=== PATIENT | female | born 1950 | race Caucasian/White ===

== ENCOUNTER 2016-07-14 13:12 | Emergency (ER) | payer MEDICARE, MEDICAID ==
[~2016-07-14] VITALS: Ht 160 cm; Wt 63.6 kg
[~2016-07-14 13:12] MED LIST: ASPI-973 PO; BUDE10.2 IH; CARV6.252 PO; CLOP75TA3 PO; HYDR5TAB2 PO; KLO1T PO; LINE600T7 PO; ONDA4TAB9 PO; OXYC5TAB72 PO; PREC VAGINAL; SACC250C PO; SULF1TAB35 PO; SYMINH INH
[2016-07-14 13:16] VITALS: BP 146/85; PULSE 88; RESP 16; O2SAT 95
--- NOTE | 2016-07-14 13:31 | ED.REPORT ---
HPI-General Illness Date of Service Jul 14, 2016 ED Provider: Dr. Reynoso 66 y/o female with a hx of "seizures", recent shingles, coronary artery disease s/p stenting, HTN, anxiety and cervical cancer s/p surgery, presents to the ED complaining of diffuse vague symptoms after tapering off of her clonazepam several days ago. Symptoms include worsening of her baseline chronic bilateral leg and back pain in addition to feeling more anxious and not sleeping well. Pt reports she has always had leg cramps but it has significantly worsened since Sunday. Pt also reports back pain, nausea, dizziness, difficulty standing up, generalized weakness, occasional vague chest pain with moving/twisting, intermittent SOB, subjective fever and bruising on legs bilaterally where she bumped her legs. She denies diarrhea or vomiting but states that she has been nauseated. Pt has been taking Klonopin for several years but started tapering down several months ago. She stopped taking Klonopin entirely last week. She is accompanied by her finishing inspector who wishes to speak to me individually stating that the patient has a long psychiatric history and has been more agitated/ anxious ever since being taken off of her clonazepam by her PCP. Nursing Notes Stated Complaint: DIZZY/HEADACHE/BOTH LEG PAIN Chief Complaint: General Complaint Nursing Notes Reviewed: Yes Allergies: Coded Allergies: Penicillins (Verified Allergy, Severe, ANAPHYLAXIS, 07/14/16) clopidogrel (Verified Allergy, Severe, 07/14/16) hydrocortisone (Verified Allergy, Severe, 07/14/16) meperidine (Verified Allergy, Severe, 07/14/16) chocolate flavor (Verified Allergy, Mild, 07/14/16) Contrast Media (Verified Allergy, Unknown, 07/14/16) Mqupjyg-Cce-Spa Reductase Inhibitor (Verified Allergy, Unknown, 07/14/16) Tricyclic Compounds (Verified Allergy, Unknown, 07/14/16) acetaminophen (Verified Allergy, Unknown, generalized rash, 07/14/16) per patient report, not witnessed carbamazepine (Verified Allergy, Unknown, 07/14/16) divalproex sodium (Verified Allergy, Unknown, 07/14/16) iodine (Verified Allergy, Unknown, 07/14/16) latex (Verified Allergy, Unknown, 07/14/16) peanut (Verified Allergy, Unknown, 07/14/16) Uncoded Allergies: GLUCOCORTICOIDS (Ingr Allergy) (Allergy, Severe, Y, 03/09/04) Opiate Agonists (Narcotics) (Allergy, Severe, 02/14/12) DEMEROL, denies allergy to Oxycodone, Morphine or Dilaudid ANTIPSYCHOTICS (Allergy, Mild, 01/19/09) SEROTONIN UPTAKE (Allergy, Mild, 03/09/04) Scheduled Aspirin (Aspirin) 81 Mg Tablet 81 MG PO DAILY Budesonide/Formoterol 160-4.5 mcg Inh (Symbicort 160-4.5 mcg Inh) 120 Puff Inhaler 2 PUFFS INH BID Budesonide/Formoterol 80-4.5 mcg Inh (Symbicort 80-4.5 mcg Inh) 120 Puff/10.2 Gm Inhaler 2 PUFF IH BID Carvedilol (Carvedilol) 6.25 Mg Tablet 6.25 MG PO MORNING Carvedilol (Carvedilol) 6.25 Mg Tablet 25 MG PO Evening Clonazepam (Clonazepam) 1 Mg Tablet 2 MG PO TID Clopidogrel Bisulfate (Plavix) 75 Mg Tablet 75 MG PO DAILY Estrogens Conjugated (Premarin) 1 Gm Vagcream 0.5 GM VAGINAL twice a week Hydrocortisone (Hydrocortisone) 5 Mg Tablet 20 MG PO BID Linezolid (Linezolid) 600 Mg Tablet 600 MG PO BID Saccharomyces Boulardii (Florastor) 250 Mg Capsule 250 MG PO BID Sulfamethoxazole/Trimeth 800-160 mg (Bactrim DS 800-160 mg) 1 Each Tablet 1 TABLET PO BID Scheduled PRN Ondansetron ODT (Zofran ODT) 4 Mg Tablet 4 MG PO Q4H PRN PRN For Nausea oxyCODONE (oxyCODONE) 5 Mg Tablet 5 MG PO TID PRN PRN For Pain General Time Seen by MD: 13:31 Chief Complaint Other (Bilateral leg cramps) Hx Obtained From: Patient Arrived By: Walk-in Sudden in Onset?: Yes Symptom Duration: Since onset Quality: Painful Radiation: : Does not radiate Severity: Current: Mild Severity: Maximum: Mild Recent Healthcare: No recent doctor visit Similar Sx Previous: No Past Medical History Past Medical History Notes: Reports administrative personal assistant is Dr. Travis in [place] ([phone]) Past Medical History 1. Coronary artery disease with stent placement. 2. Sarcoidosis of the lungs. O2 dependent 3. Old myocardial infarction in 2004. 4. Acid reflux. 5. Depression. 6. Bone spurs 6. Hypertension. 7. History of adrenal insufficiency secondary to [place]'s disease 8. Anxiety Reports: Cancer Past Surgical History Biopsy Reports: Hysterectomy Smoking History Former Smoker Social History Alcohol Use: "Social" Ambulatory Status Independent Review of Systems Difficulty standing up. Full Review of Systems Constitutional: Reports: Fever Respiratory: Reports: Shortness of breath Cardiovascular: Reports: Chest pain GI: Reports: Nausea, Denies: Vomiting Musculoskeletal: Reports: Back pain, Extremity pain Skin: Reports Bruising Neurologic: Reports: Dizziness, Weakness Psychiatric: Denies: Insomnia Complete sys rev & neg: except as marked. Physical Exam Vital Signs Vital Signs Date Time Temp Pulse Resp B/P Pulse Ox O2 Delivery O2 Flow Rate FiO2 07/14/16 13:16 36.6 88 16 146/85 95 Room Air Initial VS: Reviewed, Vital signs normal Head / Eyes: Atraumatic, Normocephalic, PERRL Respiratory: Breath sounds normal, Clear to auscultation, No respiratory distress Cardiovascular: Regular rate & rhythm, Heart sounds normal, Intact distal pulses Abdomen / GI: Soft, Non-tender, No guarding, No rebound, No distention Skin: Warm, Dry, No cyanosis Neurologic: Alert, Oriented, Nonfocal Psychiatric: Mood/affect normal, Behavior normal, Normal thought content General/Constitutional: Awake, Alert, Cooperative, Not toxic appearing ENT: Atraumatic Dry mucous membranes. Neck: Atraumatic, Full range of motion No mid-cervical tenderness. Upper Extremities Upper Extremity / MS: Atraumatic, Full range of motion Old well-healed horizontal scars on left and right forearm. Lower Extremity / Pelvis / MS: Atraumatic, Full range of motion Scattered superficial varicose veins to her bilateral lower extremeties. Neurologic: Oriented X3, Speech NL, No motor deficits, No sensory deficits No pronator drift. 5/5 strength in all 4 extremities Re-Eval/Medical Decision Med Decision/Clinical Course 66 y/o female with a hx of "seizures", recent shingles, coronary artery disease s/p stenting, HTN, anxiety and cervical cancer s/p surgery, presents to the ED complaining of diffuse vague symptoms after tapering off of her clonazepam several days ago. Symptoms include worsening of her baseline chronic bilateral leg and back pain in addition to feeling more anxious and not sleeping well. Pt reports she has always had leg cramps but it has significantly worsened since Sunday. Pt also reports back pain, nausea, dizziness, difficulty standing up, generalized weakness, occasional vague chest pain with moving/twisting, intermittent SOB, subjective fever and bruising on legs bilaterally where she bumped her legs. She denies diarrhea or vomiting but states that she has been nauseated. Pt has been taking Klonopin for several years but started tapering down several months ago. She stopped taking Klonopin entirely last week. She is accompanied by her finishing inspector who wishes to speak to me individually stating that the patient has a long psychiatric history and has been more agitated/ anxious ever since being taken off of her clonazepam by her PCP. Here in the emergency department the patient is hemodynamically stable and afebrile. She has not been experiencing any seizure events and her seizure history is unclear. Generally benzodiazepines are not used as a maintenance antiseizure medication. While I suspect that she is experiencing benzodiazepine withdrawal she is not experiencing any severe symptoms of tachycardia, tremors or seizures. Her neurologic examination is completely nonfocal. She has no fevers , chills, cough or urinary symptoms suggestive of acute bacterial infection. Skin examination reveals no abscesses or rash. She is without meningismus or neck stiffness suggestive of meningitis. She is without suicidal ideation or severe disorganization and I do not feel that she is immediate risk of harm to herself or others. He reported feeling somewhat nauseated and dehydrated and she was given 1 L of normal saline in addition to Zofran for nausea. She had symptom improvement. She remained afebrile and hemodynamically stable. Her overall constellation of symptoms is highly suggestive of benzodiazepine withdrawal and I do not feel that imaging or laboratory studies will be of much diagnostic benefit. She is advised to follow-up with her primary care doctor regarding whether or not they would like to restart her on benzodiazepines or prolong her taper. At this time I do not feel that treatment with benzodiazepines is emergently indicated. Prior to discharge follow-up and return precautions were reviewed in detail with the patient who verbalized understanding and agreement with the plan. The patient was discharged in stable condition. Time of Eval: 13:40 Re-Evaluation/Progress Note: Informed the pt of diagnosis and plan to discharge. Pt understood and agreed witht the plan. F/U and RTER instructions given. All questions answered. Counseled Regarding: Diagnosis, Need for follow-up, When/why to return to ED Discharge & Departure Primary Impression: Benzodiazepine withdrawal Complication of substance-induced condition: uncomplicated Qualified Code: F13.230 - Sedative, hypnotic or anxiolytic dependence with withdrawal, uncomplicated Additional Impressions: Anxiety Insomnia Insomnia type: unspecified Qualified Code: G47.00 - Insomnia, unspecified Total body pain Disposition: Home Discharge Condition All VS Reviewed: Yes Condition: Stable Additional Instructions: Thank you for seeking care at the emergency room. It is difficult for us to make definitive diagnoses in the ED but we believe that you are experiencing benzodiazepine withdrawal. Our primary goal today in the ED was to evaluate you for any life-threatening conditions. Your evaluation was reassuring. You should follow-up with your primary doctor in the next week. If you feel that your taper has been done to quickly please discuss this with your regular doctor. You should return to the ED immediately if you develop worsening symptoms, seizures, tremors, suicidal thoughts, fevers, vomiting, cough, shortness of breath, chest pain, lightheadedness, weakness or any other concerning signs or symptoms. Thank you for letting us partake in your care today. Referrals: Zeus Gerardo MD (PCP) Scribe Attestation Portions of this note were transcribed by Ivelisse Yousif and Anita Harris . I, personally performed the history, physical exam and medical decision-making;I reviewed and confirmed the accuracy of the information in the transcribed note. Signed by Ivelisse Harris, Scribe. 07/14/16 1600. copies to: Zeus Gerardo MD, Beck O MD Jul 14, 2016 13:31 Ivelisse Yousif Jul 14, 2016 14:58 Anita Harris Jul 14, 2016 15:51
[2016-07-14] MEDS ORDERED: Ondansetron 2 mg/mL 2 mL Inj IVPUSH ONE (15:40)
[2016-07-14] MEDS ORDERED: 0.9% Sodium Chloride 1,000 ML IV ONE (15:40)
[2016-07-14 16:45] VITALS: BP 124/73; PULSE 76; RESP 18; O2SAT 99
[2016-07-14] MEDS ORDERED: ONDA4TAB9 PO (16:58)
== END 2016-07-14 17:01 | disposition home or self-care (01) ==
LOC: SED 13:12
DX: F13.230 Sedative, hypnotic or anxiolytic dependence with withdrawal, uncomplicated (principal); M79.604 Pain in right leg; M79.605 Pain in left leg; M54.9 Dorsalgia, unspecified; R07.9 Chest pain, unspecified; F41.9 Anxiety disorder, unspecified; G47.00 Insomnia, unspecified; I11.9 Hypertensive heart disease without heart failure; I25.10 Atherosclerotic heart disease of native coronary artery without angina pectoris; K21.9 Gastro-esophageal reflux disease without esophagitis; I25.2 Old myocardial infarction; Z91.14 Patient's other noncompliance with medication regimen; Z79.82 Long term (current) use of aspirin; Z87.891 Personal history of nicotine dependence; Z88.0 Allergy status to penicillin; Z88.5 Allergy status to narcotic agent; Z88.8 Allergy status to other drugs, medicaments and biological substances; Z91.010 Allergy to peanuts; Z91.040 Latex allergy status; Z91.041 Radiographic dye allergy status
CPT/HCPCS: 96361; 96374; 99284; J2405; J7030

== ENCOUNTER 2016-07-15 20:33 | Emergency (ER) | payer MEDICARE, MEDICAID ==
[~2016-07-15] VITALS: Ht 162.6 cm; Wt 63.6 kg
[2016-07-15 20:36] VITALS: BP 161/98; PULSE 87; RESP 16; O2SAT 98
--- NOTE | 2016-07-15 22:49 | ED.REPORT ---
HPI-General Illness Date of Service Jul 15, 2016 ED Provider: Carlton Hyde DO A 66 year old female with a history of hypertension, anxiety, Elier's disease and multiple other medical concerns presents to the ED complaining of a possible allergic reaction to Zofran. She was seen in the ED last night and prescribed Zofran, which she took the first dose of this evening. She began to feel her mouth and throat swell after this. The pt took two Benadryl at home but is still complaining of swelling. Nursing Notes Stated Complaint: POSSIBLE ALLERGIC REACTION Chief Complaint: Allergic Reaction Nursing Notes Reviewed: Yes Allergies: Coded Allergies: Penicillins (Verified Allergy, Severe, ANAPHYLAXIS, 07/15/16) clopidogrel (Verified Allergy, Severe, 07/15/16) hydrocortisone (Verified Allergy, Severe, 07/15/16) meperidine (Verified Allergy, Severe, 07/15/16) chocolate flavor (Verified Allergy, Mild, 07/15/16) Contrast Media (Verified Allergy, Unknown, 07/15/16) Vasldnh-Zif-Npb Reductase Inhibitor (Verified Allergy, Unknown, 07/15/16) Tricyclic Compounds (Verified Allergy, Unknown, 07/15/16) acetaminophen (Verified Allergy, Unknown, generalized rash, 07/15/16) per patient report, not witnessed carbamazepine (Verified Allergy, Unknown, 07/15/16) divalproex sodium (Verified Allergy, Unknown, 07/15/16) iodine (Verified Allergy, Unknown, 07/15/16) latex (Verified Allergy, Unknown, 07/15/16) peanut (Verified Allergy, Unknown, 07/15/16) Uncoded Allergies: GLUCOCORTICOIDS (Ingr Allergy) (Allergy, Severe, Y, 03/09/04) Opiate Agonists (Narcotics) (Allergy, Severe, 02/14/12) DEMEROL, denies allergy to Oxycodone, Morphine or Dilaudid ANTIPSYCHOTICS (Allergy, Mild, 01/19/09) SEROTONIN UPTAKE (Allergy, Mild, 03/09/04) Scheduled Aspirin (Aspirin) 81 Mg Tablet 81 MG PO DAILY Budesonide/Formoterol 160-4.5 mcg Inh (Symbicort 160-4.5 mcg Inh) 120 Puff Inhaler 2 PUFFS INH BID Budesonide/Formoterol 80-4.5 mcg Inh (Symbicort 80-4.5 mcg Inh) 120 Puff/10.2 Gm Inhaler 2 PUFF IH BID Carvedilol (Carvedilol) 6.25 Mg Tablet 6.25 MG PO MORNING Carvedilol (Carvedilol) 6.25 Mg Tablet 25 MG PO Evening Clonazepam (Clonazepam) 1 Mg Tablet 2 MG PO TID Clopidogrel Bisulfate (Plavix) 75 Mg Tablet 75 MG PO DAILY Estrogens Conjugated (Premarin) 1 Gm Vagcream 0.5 GM VAGINAL twice a week Hydrocortisone (Hydrocortisone) 5 Mg Tablet 20 MG PO BID Linezolid (Linezolid) 600 Mg Tablet 600 MG PO BID Saccharomyces Boulardii (Florastor) 250 Mg Capsule 250 MG PO BID Sulfamethoxazole/Trimeth 800-160 mg (Bactrim DS 800-160 mg) 1 Each Tablet 1 TABLET PO BID Scheduled PRN Ondansetron ODT (Zofran ODT) 4 Mg Tablet 4 MG PO Q4H PRN PRN For Nausea Ondansetron ODT (Zofran ODT) 4 Mg Tablet 4 MG PO Q4H PRN PRN For Nausea oxyCODONE (oxyCODONE) 5 Mg Tablet 5 MG PO TID PRN PRN For Pain General Time Seen by MD: 22:47 Chief Complaint Allergic reaction Hx Obtained From: Patient Arrived By: Walk-in Sudden in Onset?: Yes Onset Occurred: 1 - 4 hours ago Symptom Duration: Since onset Recent Healthcare: Recent doctor visit, Recent hospitalization Similar Sx Previous: Yes Past Medical History Past Medical History Notes: 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 Coronary artery disease with stent placement. 2. Sarcoidosis of the lungs. O2 dependent 3. Old myocardial infarction in 2004. 4. Acid reflux. 5. Depression. 6. Bone spurs 6. Hypertension. 7. History of adrenal insufficiency secondary to [place]'s disease 8. Anxiety Reports: Cancer Past Surgical History Biopsy Reports: Hysterectomy Smoking History Former Smoker Social History Alcohol Use: "Social" Ambulatory Status Independent Review of Systems swelling of the tongue and cheek Full Review of Systems Respiratory: Denies: Non-productive cough, Shortness of breath Cardiovascular: Denies: Chest pain GI: Denies: Abdominal pain Musculoskeletal: Denies: Back pain, Neck pain Skin: Denies Rash Complete sys rev & neg: except as marked. Physical Exam Vital Signs Vital Signs Date Time Temp Pulse Resp B/P Pulse Ox O2 Delivery O2 Flow Rate FiO2 07/16/16 02:02 71 20 145/94 96 Room Air 07/15/16 23:42 66 16 135/79 99 Nasal Cannula 2 07/15/16 20:36 36.3 87 16 161/98 98 Nasal Cannula 2 Initial VS: Reviewed General/Constitutional: Awake, Alert Head / Eyes: Atraumatic, Normocephalic, PERRL, EOMI ENT: Atraumatic, Airway patent, Mucous membranes moist angioedema of the tongue and cheek Neck: Atraumatic, Supple, Full range of motion Respiratory / Chest: Atraumatic, Breath sounds NL, Breath sounds = bilat, No respiratory distress Cardiovascular: Heart rate NL, Regular rhythm, Heart sounds NL Abdomen: Atraumatic, Soft, Non-tender Back: Atraumatic, Full range of motion Upper Extremities Upper Extremity / MS: Atraumatic, Full range of motion Lower Extremity / Pelvis / MS: Atraumatic, Full range of motion Skin: Atraumatic, Color NL, No rash, Warm, Dry Neurologic: Oriented X3, Speech NL, No motor deficits, No sensory deficits Psychiatric: Affect NL, Mood NL Interpretation & Diagnostics Lab Results Interpretation Result Diagram: 07/16/16 0050 07/16/16 0050 Test 07/16/16 00:50 White Blood Count 9.6th/mm3 (3.8-10.1) Red Blood Count 4.54mil/mm3 (3.90-5.20) Hemoglobin 13.7g/dL (12.0-15.6) Hematocrit 42.8% (35.0-46.0) Mean Corpuscular Volume 94.3fL (81-100) Mean Corpuscular Hemoglobin 30.2pg (27.0-35.0) Mean Corpuscular Hemoglobin Concent 32.0% (32.0-37.0) Red Cell Distribution Width 13.3% (12.3-15.4) Platelet Count 255bil/L (150-400) Neutrophils (%) (Auto) 62.6% (40-74) Lymphocytes (%) (Auto) 27.2% (14-46) Monocytes (%) (Auto) 7.8% (4-12) Eosinophils (%) (Auto) 1.7% (0-5) Basophils (%) (Auto) 0.5% (0-3) Hold Purple Top Tube Received (Received) Hold Blue Top Tube Received (Received) Sodium Level 140mEq/L (134-144) Potassium Level 4.4mEq/L (3.5-5.2) Chloride Level 99mEq/L (97-108) Carbon Dioxide Level 24mmol/L (18-29) Blood Urea Nitrogen 14mg/dL (8-27) Creatinine 0.75mg/dL (0.57-1.00) Estimat Glomerular Filtration Rate 111mL/min (>59) Glucose Level 104mg/dL (60-99) Calcium Level 9.2mg/dL (8.5-10.1) Troponin T 0.010ug/L (0.0-0.011) Hold Red Top Tube Received (Received) Hold [place] Top Tube Received (Received) Hold [place] Top Tube Received (Received) Pulse Oximetry Interpretation Pulse Oximetry Interpretation: 98% on nasal cannula Pulse Oximetry: Pulse Ox normal Re-Eval/Medical Decision Med Decision/Clinical Course The patient was observe for 5.5 hours. During this time her swelling resolved and her vital signs remained stable. She was asymptomatic and her labs were reassuring. The patient was discharged home with instructions to avoid Zofran in the future. Source of Hx: Old records Time of Eval: 01:23 Patient Status: Condition improved Re-Evaluation/Progress Note: Pt rechecked, whose condition has significantly improved. The diagnosis and plan for discharge are discussed. The pt understands and agrees with the plan. All questions are addressed at this time. Counseled Regarding: Diagnosis, Lab results, Need for follow-up, When/why to return to ED Discharge & Departure Primary Impression: Angioedema Encounter type: initial encounter Qualified Code: T78.3XXA - Angioneurotic edema, initial encounter Disposition: Home Discharge Condition All VS Reviewed: Yes Condition: Stable Patient Instructions: Anaphylaxis (DC) Additional Instructions: Use Benadryl as directed. Take your medications as directed. Your white blood count is normal and your body chemistry tests are reassuring. Call your primary care physician in the morning to arrange a follow up appointment next week. I recommend that you avoid Ondansetron in the future. Return to the emergency department if you develop any new or worsening symptoms. Referrals: Zeus Gerardo MD (PCP) Andrewibe Attestation Portions of this note were transcribed by Calvin Lua. I, Dr. Hyde personally performed the history, physical exam and medical decision-making; I reviewed and confirmed the accuracy of the information in the transcribed note. Signed by: Fermín Saunders, 07/16/16 and 0213. copies to: Zeus Gerardo MD, Todd P DO Jul 15, 2016 22:49 CALVIN LUA Jul 15, 2016 22:57
[2016-07-15] MEDS ORDERED: Hydrocortisone 50 mg/mL 2 mL Inj IVPUSH ONE (22:55)
[2016-07-15] MEDS ORDERED: Famotidine Inj 20 MG in IV Premix 1 EACH IV ONE (22:55)
[2016-07-15 23:42] VITALS: BP 135/79; PULSE 66; RESP 16; O2SAT 99
[2016-07-16 01:30] LABS: BASOPHILS % (AUTO) 0.5 % (0-3); EOSINOPHILS % (AUTO) 1.7 % (0-5); MONOCYTES % (AUTO) 7.8 % (4-12); Mean Corpuscular Hemoglobin 30.2 pg (27.0-35.0); Mean Corpuscular Volume 94.3 fL (81-100); NEUTROPHILS % (AUTO) 62.6 % (40-74); Platelet Count 255 bil/L (150-400)
[2016-07-16 02:02] VITALS: BP 145/94; PULSE 71; RESP 20; O2SAT 96
== END 2016-07-16 02:04 | disposition home or self-care (01) ==
LOC: SED 20:33
DX: T78.3XXA Angioneurotic edema, initial encounter (principal); Y93.89 Activity, other specified; Y92.89 Other specified places as the place of occurrence of the external cause; Y99.8 Other external cause status; E27.1 Primary adrenocortical insufficiency; I11.9 Hypertensive heart disease without heart failure; I25.10 Atherosclerotic heart disease of native coronary artery without angina pectoris; K21.9 Gastro-esophageal reflux disease without esophagitis; I25.2 Old myocardial infarction; Z87.891 Personal history of nicotine dependence; Z79.82 Long term (current) use of aspirin; Z88.0 Allergy status to penicillin; Z88.5 Allergy status to narcotic agent; Z88.8 Allergy status to other drugs, medicaments and biological substances; Z91.010 Allergy to peanuts; Z91.02 Food additives allergy status; Z91.040 Latex allergy status; Z91.041 Radiographic dye allergy status
CPT/HCPCS: 36415; 80048; 84484; 85025; 96374; 96375; 99284; J1720; J3490

== ENCOUNTER 2016-07-28 15:01 | Emergency (ER) | payer MEDICARE, MEDICAID ==
[~2016-07-28] VITALS: Ht 162.6 cm; Wt 63.6 kg
[2016-07-28 15:05] VITALS: BP 120/64; PULSE 97; RESP 10; O2SAT 100
--- NOTE | 2016-07-28 16:28 | ED.REPORT ---
HPI-Medication Refill Date of Service July 28, 2016 ED Provider: David Reynoso MD History of Present Illness: sent in by counselor, kierra zelaya sent her in. sees her 2 times a month. body feels weird, things crawling into skin. started 2 weeks ago. 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 5 hours a day 6 days a week is what help she has. Seen in [place]. coughing which is new since yesterday. has scardosis, gopal's. last took clonzapam 2 weeks ago. Nursing Notes Stated Complaint: MEDICATION WITHDRAWAL Chief Complaint: General Complaint Nursing Notes Reviewed: Yes Allergies: Coded Allergies: Penicillins (Verified Allergy, Severe, ANAPHYLAXIS, 07/15/16) clopidogrel (Verified Allergy, Severe, 07/15/16) hydrocortisone (Verified Allergy, Severe, 07/15/16) meperidine (Verified Allergy, Severe, 07/15/16) chocolate flavor (Verified Allergy, Mild, 07/15/16) Contrast Media (Verified Allergy, Unknown, 07/15/16) Glmspsq-Zvm-Kix Reductase Inhibitor (Verified Allergy, Unknown, 07/15/16) Tricyclic Compounds (Verified Allergy, Unknown, 07/15/16) acetaminophen (Verified Allergy, Unknown, generalized rash, 07/15/16) per patient report, not witnessed carbamazepine (Verified Allergy, Unknown, 07/15/16) divalproex sodium (Verified Allergy, Unknown, 07/15/16) iodine (Verified Allergy, Unknown, 07/15/16) latex (Verified Allergy, Unknown, 07/15/16) ondansetron (Verified Allergy, Unknown, angioedema, 07/28/16) peanut (Verified Allergy, Unknown, 07/15/16) Uncoded Allergies: GLUCOCORTICOIDS (Ingr Allergy) (Allergy, Severe, Y, 03/09/04) Opiate Agonists (Narcotics) (Allergy, Severe, 02/14/12) DEMEROL, denies allergy to Oxycodone, Morphine or Dilaudid ANTIPSYCHOTICS (Allergy, Mild, 01/19/09) SEROTONIN UPTAKE (Allergy, Mild, 03/09/04) Scheduled Aspirin (Aspirin) 81 Mg Tablet 81 MG PO DAILY Budesonide/Formoterol 160-4.5 mcg Inh (Symbicort 160-4.5 mcg Inh) 120 Puff Inhaler 2 PUFFS INH BID Budesonide/Formoterol 80-4.5 mcg Inh (Symbicort 80-4.5 mcg Inh) 120 Puff/10.2 Gm Inhaler 2 PUFF IH BID Carvedilol (Carvedilol) 6.25 Mg Tablet 6.25 MG PO MORNING Carvedilol (Carvedilol) 6.25 Mg Tablet 25 MG PO Evening Clonazepam (Clonazepam) 1 Mg Tablet 2 MG PO TID Clopidogrel Bisulfate (Plavix) 75 Mg Tablet 75 MG PO DAILY Estrogens Conjugated (Premarin) 1 Gm Vagcream 0.5 GM VAGINAL twice a week Hydrocortisone (Hydrocortisone) 5 Mg Tablet 20 MG PO BID Linezolid (Linezolid) 600 Mg Tablet 600 MG PO BID Saccharomyces Boulardii (Florastor) 250 Mg Capsule 250 MG PO BID Sulfamethoxazole/Trimeth 800-160 mg (Bactrim DS 800-160 mg) 1 Each Tablet 1 TABLET PO BID Scheduled PRN Ondansetron ODT (Zofran ODT) 4 Mg Tablet 4 MG PO Q4H PRN PRN For Nausea Ondansetron ODT (Zofran ODT) 4 Mg Tablet 4 MG PO Q4H PRN PRN For Nausea oxyCODONE (oxyCODONE) 5 Mg Tablet 5 MG PO TID PRN PRN For Pain General Time Seen by Provider: 16:27 Chief Complaint Other (feels things crawling in her skin) Hx Obtained From: Patient Onset Occurred: More than a week ago... (3 weeks) Symptom Duration: Since onset Past Medical History Past Medical History Notes: Reports hadoop admin is Dr. Travis in [place] ([phone]) Past Medical History 1. Coronary artery disease with stent placement. 2. Sarcoidosis of the lungs. O2 dependent 3. Old myocardial infarction in 2004. 4. Acid reflux. 5. Depression. 6. Bone spurs 6. Hypertension. 7. 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 in [place] 07/28/2016 Ambulatory Status Independent Review of Systems Basic Review of Systems Eyes: Vision NL, No discharge Endocrine: No cold intolerance, No weight gain, No weight loss Psychiatric: Normal thought content Physical Exam Initial Vital Signs Vital Signs (First) Date Time Temp Pulse Resp B/P Pulse Ox O2 Delivery O2 Flow Rate FiO2 07/28/16 15:05 36.6 97 10 120/64 100 07/28/16 20:01 Room Air Initial VS: Reviewed, Vital signs normal General/Constitutional: Well-developed, Well-nourished Head / Eyes: Atraumatic, Normocephalic, PERRL ENT: Mucous membranes moist, Conjunctiva normal, No scleral icterus Neck: Supple, Non-tender, Full range of motion Respiratory: Breath sounds normal, Clear to auscultation, No respiratory distress Cardiovascular: Regular rate & rhythm, Heart sounds normal, Intact distal pulses Abdomen / GI: Soft, Non-tender, No guarding, No rebound, No distention Back: No CVA tenderness Lymphatic: No lymphadenopathy Extremities: Vascular intact, Neuro intact, No swelling, No tenderness Skin: Warm, Dry, No cyanosis Neurologic: Alert, Oriented, Nonfocal Psychiatric: Mood/affect normal, Behavior normal, Normal thought content General/Constitutional: Awake, Alert, No acute distress, Well appearing, Well developed, Well hydrated Respiratory / Chest: Atraumatic, Breath sounds NL Diminished Breath Sounds: Positive: Decreased bilateral Cardiovascular: Heart rate NL, Regular rhythm, Heart sounds NL Abdomen: Atraumatic, Soft, Non-tender Neurologic: Oriented X3, Speech NL, No motor deficits Abnormal Mood/Affect: Positive: Flat affect Abnormal Thinking / Perception: Positive: Insight abnormal, Judgment abnormal Interpretation & Diagnostics Interpretation & Diagnostics: DICATIONS: confusion, parnoia TECHNIQUE: Noncontrast 4.5 mm thick angled axial sections acquired from the foramen magnum to the vertex, with coronal reformats. COMPARISON: [facility], CT, CT BRAIN WO CON, 01/24/2016, 18:38. FINDINGS: Image quality: Excellent. CSF spaces: Basal cisterns are patent. No extra-axial fluid collections. The ventricles are symmetric in size and shape. Brain: No intracranial bleeds or masses. There is cerebral volume loss for age, with resultant ventricular and sulcal prominence. There are periventricular and deep white matter chronic small vessel ischemic changes. There is intracranial internal carotid artery atherosclerosis. Skull and face: Calvarium and visualized facial bones appear intact, without suspicious lesions. Sinuses: Visualized sinuses and mastoids are clear. IMPRESSION: No acute changes are seen intracranially. Minimal atrophic changes are seen. No change is seen since the previous CT of 01/24/16. Dictated by: Camron Reyes M.D. on 07/28/2016 at 17:03 Approved by: Camron Reyes M.D. on 07/28/2016 at 17:06 PROCEDURE: X-RAY CHEST, TWO VIEWS ([id number]) INDICATIONS: cough TECHNIQUE: 2 views of the chest were acquired. COMPARISON: [facility], CR, XR CHEST 2V AP/PA AND LAT, 04/17/2016, 9:53 PM. [facility], CR, CHEST 2VW, 04/03/2014, 16:15. [facility], CR, CHEST 2VW, 02/04/2014, 18:52. [facility], CR, CHEST 2VW, 01/07/2014, 16:56. FINDINGS: Surgical changes and devices: None. Lungs and pleura: No pleural effusions or pneumothorax. No change in mild patchy opacities within the bilateral lower lungs. Lungs are otherwise clear. Mediastinum: Mediastinal contours are normal. Heart size is normal. Bones and chest wall: No suspicious bony abnormalities. Soft tissues appear unremarkable. IMPRESSION: Findings suggestive of the bilateral lower lung scarring. No definite acute process. Dictated by: Kenyatta Davis M.D. on 07/28/2016 at 17:08 Approved by: Kenyatta Davis M.D. on 07/28/2016 at 17:09 Lab Results Interpretation Result Diagram: 07/28/16 1716 07/28/16 1716 Test 07/28/16 17:12 07/28/16 17:16 07/28/16 18:52 Troponin T < 0.010ug/L (0.0-0.011) White Blood Count 13.3th/mm3 (3.8-10.1) Red Blood Count 4.50mil/mm3 (3.90-5.20) Hemoglobin 14.1g/dL (12.0-15.6) Hematocrit 41.7% (35.0-46.0) Mean Corpuscular Volume 92.7fL (81-100) Mean Corpuscular Hemoglobin 31.3pg (27.0-35.0) Mean Corpuscular Hemoglobin Concent 33.8% (32.0-37.0) Red Cell Distribution Width 13.3% (12.3-15.4) Platelet Count 282bil/L (150-400) Neutrophils (%) (Auto) 79.1% (40-74) Lymphocytes (%) (Auto) 14.2% (14-46) Monocytes (%) (Auto) 5.7% (4-12) Eosinophils (%) (Auto) 0.4% (0-5) Basophils (%) (Auto) 0.4% (0-3) Sodium Level 137mEq/L (134-144) Potassium Level 4.2mEq/L (3.5-5.2) Chloride Level 101mEq/L (97-108) Carbon Dioxide Level 24mmol/L (18-29) Blood Urea Nitrogen 17mg/dL (8-27) Creatinine 0.71mg/dL (0.57-1.00) Estimat Glomerular Filtration Rate 119mL/min (>59) Glucose Level 108mg/dL (60-99) Lactic Acid Level 0.9mmol/L (0.4-2.0) Calcium Level 9.2mg/dL (8.5-10.1) Total Bilirubin 0.3mg/dL (0.0-1.2) Aspartate Amino Transf (AST/SGOT) 24U/L (0-50) Alanine Aminotransferase (ALT/SGPT) 17U/L (0-32) Alkaline Phosphatase 65U/L (25-165) Total Protein 6.5g/dL (6.4-8.4) Albumin 3.6g/dL (3.4-5.0) Thyroid Stimulating Hormone (TSH) 0.509uIU/mL (0.450-4.500) Hold Chilel Top Tube Received (Received) Urine Color Yellow (YELLOW) Urine Appearance Hazy (CLEAR,HAZY) Urine pH 6.0 (5.0-8.0) Urine Specific Burton <1.005 (1.003-1.035) Urine Protein Negativemg/dL (NEG,TRACE) Urine Glucose (UA) Negativemg/dL (NEGATIVE) Urine Ketones Negativemg/dL (NEGATIVE) Urine Occult Blood Negative (NEGATIVE) Urine Nitrite Negative (NEGATIVE) Urine Bilirubin Negative (NEGATIVE) Urine Urobilinogen Normalmg/dL (NORMAL) Urine Leukocyte Esterase Trace (NEGATIVE) Urine RBC 0-2/hpf (0-2) Urine WBC 6-10/hpf (0-5) Urine Epithelial Cells Many/hpf (NONE-MOD) Urine Crystals None seen (NONE SEEN) Urine Bacteria Moderate/hpf (NONE-FEW) Urine Hyaline Casts None/lpf (NONE) Urine Granular Casts None seen (NONE SEEN) Urine Waxy Casts None seen (NONE SEEN) Urine Red Blood Cell Casts None seen (NONE SEEN) Urine White Blood Cell Casts None seen (NONE SEEN) Urine Mucus None seen (None Seen) Urine Trichomonas None seen (NONE SEEN) Urine Yeast None (NONE SEEN) Urinalysis Comment None Urine Culture Reflexed Indicated Lab Results Interpretation: urine is negative. U tox is positive for oxycodone and TCA Re-Evaluation & MDM Med Decision/Clinical Course 66 year old female presents at the request of a wildlife technician who comes to the home 2 times a month. Patient is with her ambulatory care nurse. Extensive work up does not identify any physical concern. ENTRY LEVEL MECHANICAL ENGINEER speaks with patient to provided resources. Discuss with claims auditor provider for Dr. Albert, will see her on Sunday or Sunday. Patient with overwhelming care of her . He likley needs a higher level of care. Provided small amount of visteral. Patient Discharge & Departure Impression: Primary Impression: Medication adverse effect Encounter type: subsequent encounter Qualified Code: T88.7XXD - Unspecified adverse effect of drug or medicament, subsequent encounter Disposition: Home Additional Instructions: You likely are experiencing post acute withdrawal form being on the benzo's for such a long time and such a huge amount. Tincture of time will help, unfortunately, there is not a "magic" medication that will help with this. Dr. Albert has tapered you off. You are still on large amounts of oxycodone. I think you need a higher level of care for your . Please discuss this with primary care when you are seen on Sunday or Sunday. Your chest x-ray is normal. The brain CT is normal. Your labs show a mild elevation in WBC of 13. The urine is normal and is being cultured. If the people who are supposed to help you are not helpful, use the drug abuse social worker at primary care. Another option is [facility]. It is not appropriate that you provide care when you are not able to!! ! You are being provided visteral 12.5 mg up to 2 times a day if needed for anxiety. If you find this helpful, please discuss this with Dr. Albert. Records are being faxed to Dr. Albert's office at [phone]. I wish you the best. You have some difficult choices ahead of you. Referrals: Carlos A Albert MD EDSupervising Provider for APC: David Reynoso MD copies to: Carlos A Albert MD, Sue ARNP July 28, 2016 16:27 David Reynoso MD July 28, 2016 20:10
--- NOTE | 2016-07-28 17:07 | DRSVH ---
PROCEDURE: CT BRAIN WITHOUT CONTRAST ([id number]) INDICATIONS: confusion, parnoia TECHNIQUE: Noncontrast 4.5 mm thick angled axial sections acquired from the foramen magnum to the vertex, with c oronal reformats. COMPARISON: [facility], CT, CT BRAIN WO CON, 01/24/2016, 18:38. FINDINGS: Image quality: Excellent. CSF spaces: Basal cisterns are patent. No extra-axial fluid collections. The ventricles are symmet shashi in size and shape. Brain: No intracranial bleeds or masses. There is cerebral volume loss for age, with resultant vent ricular and sulcal prominence. There are periventricular and deep white matter chronic small vessel ischemic changes. There is intracranial internal carotid artery atherosclerosis. Skull and face: Calvarium and visualized facial bones appear intact, without suspicious lesions. Sinuses: Visualized sinuses and mastoids are clear. IMPRESSION: No acute changes are seen intracranially. Minimal atrophic changes are seen. No change is seen since the previous CT of 01/24/16. Dictated by: Camron Reyes M.D. on 07/28/2016 at 17:03 Approved by: Camron Reyes M.D. on 07/28/2016 at 17:06
--- NOTE | 2016-07-28 17:10 | DRSVH ---
PROCEDURE: X-RAY CHEST, TWO VIEWS ([id number]) INDICATIONS: cough TECHNIQUE: 2 views of the chest were acquired. COMPARISON: [facility], CR, XR CHEST 2V AP/PA AND LAT, 04/17/2016, 9:53 PM. [facility], CR, CHEST 2VW, 04/03/2014, 16:15. [facility], CR, CHEST 2VW, 02/04/2014, 18:52. [facility], CR, CHEST 2VW, 01/07/2014, 16:56. FINDINGS: Surgical changes and devices: None. Lungs and pleura: No pleural effusions or pneumothorax. No change in mild patchy opacities within th e bilateral lower lungs. Lungs are otherwise clear. Mediastinum: Mediastinal contours are normal. Heart size is normal. Bones and chest wall: No suspicious bony abnormalities. Soft tissues appear unremarkable. IMPRESSION: Findings suggestive of the bilateral lower lung scarring. No definite acute process. Dictated by: Kenyatta Davis M.D. on 07/28/2016 at 17:08 Approved by: Kenyatta Davis M.D. on 07/28/2016 at 17:09
[2016-07-28 17:25] LABS: BASOPHILS % (AUTO) 0.4 % (0-3); EOSINOPHILS % (AUTO) 0.4 % (0-5); MONOCYTES % (AUTO) 5.7 % (4-12); Mean Corpuscular Hemoglobin 31.3 pg (27.0-35.0); Mean Corpuscular Volume 92.7 fL (81-100); NEUTROPHILS % (AUTO) 79.1 % (40-74); Platelet Count 282 bil/L (150-400)
[2016-07-28] MEDS ORDERED: hydrOXYzine Pamoate 25 mg Capsule PO ONE (19:05)
[2016-07-28] MEDS ORDERED: hydrOXYzine Inj 50 MG/1 mL SDV IM ONE (19:15)
[2016-07-28 19:33] LABS: APPEARANCE,URINE HAZY (CLEAR,HAZY); COLOR,URINE YELLOW (YELLOW); OCCULT BLOOD,URINE NEGATIVE (NEGATIVE); UROBILINOGEN,URINE NORMAL (NORMAL)
[2016-07-28 20:01] VITALS: BP 119/61; PULSE 91; RESP 11; O2SAT 100
== END 2016-07-28 20:08 | disposition home or self-care (01) ==
LOC: SED 15:01
DX: R05 Cough (principal); T42.4X5A Adverse effect of benzodiazepines, initial encounter; I25.10 Atherosclerotic heart disease of native coronary artery without angina pectoris; E27.1 Primary adrenocortical insufficiency; D86.9 Sarcoidosis, unspecified; I25.2 Old myocardial infarction; K21.9 Gastro-esophageal reflux disease without esophagitis; F32.9 Major depressive disorder, single episode, unspecified; Z99.81 Dependence on supplemental oxygen; Z95.818 Presence of other cardiac implants and grafts; Z87.891 Personal history of nicotine dependence; Z79.82 Long term (current) use of aspirin; Z88.0 Allergy status to penicillin; Z88.5 Allergy status to narcotic agent; Z88.8 Allergy status to other drugs, medicaments and biological substances; Z91.041 Radiographic dye allergy status; Z91.040 Latex allergy status; Z91.018 Allergy to other foods
CPT/HCPCS: 36415; 70450; 71020; 80053; 81000; 83605; 84443; 84484; 85025; 87086; 87088; 96372; 99285; J3410